=== PATIENT | male | born 1980 | race Caucasian/White ===

== ENCOUNTER 2017-01-11 19:57 | Emergency (ER) | payer OTHER ==
[~2017-01-11] VITALS: Ht 180.3 cm; Wt 79.4 kg
== END 2017-01-11 20:48 | disposition home or self-care (01) ==
LOC: ED 19:57
DX: S61.012A Laceration without foreign body of left thumb without damage to nail, initial encounter (principal); F17.200 Nicotine dependence, unspecified, uncomplicated; W31.89XA Contact with other specified machinery, initial encounter
CPT/HCPCS: 90471; 90715; 99282

== ENCOUNTER → 2017-07-26 | Emergency (ER) | payer OTHER ==
[~2017-07-26] VITALS: Ht 180.3 cm; Wt 79.4 kg
[~2017-07-26] MED LIST: TYLENOL EXTRA500 MG PO
== END ==
LOC: ED 16:21
DX: M76.62 Achilles tendinitis, left leg (principal); F17.200 Nicotine dependence, unspecified, uncomplicated
CPT/HCPCS: 73650; 99283